=== PATIENT | male | born 1955 | race Asian ===

== ENCOUNTER 2018-06-01 10:15 | Inpatient (IN) | payer OTHER ==
[~2018-06-01] VITALS: Ht 170.2 cm; Wt 65.6 kg
[2018-06-01 10:23] VITALS: Ht 170.2 cm; Wt 65.6 kg
[2018-06-01 12:40] LABS: UA SPECIFIC GRAVITY 1.015 (1.005-1.035); microscopic required? YES; urine erythrocyte NEGATIVE (NEGATIVE)
[2018-06-01 13:10] LABS: PLATELET COUNT 181 x10^3mcL (130-400)
[2018-06-01 13:15] LABS: BASOPHIL % 0 % (0-2)
[2018-06-01 13:21] LABS: CALCIUM 8.6 mg/dL (8.5-10.1); CARBON DIOXIDE 30.2 mmol/L (21-32); CHLORIDE SERUM 103 mmol/L (98-107); CREATININE SERUM 1.1 mg/dL (0.7-1.3); GFR1 > 60 mL/min; GLUCOSE SERUM 123 mg/dL (74-106); SODIUM SERUM 139 mmol/L (136-145)
[2018-06-01 13:25] LABS: ALKALINE PHOSPHATASE 76 U/L (46-116); ALT/SGPT 32 U/L (16-63); AMYLASE 37 U/L (25-115); AST/SGOT 17 U/L (15-37); BILIRUBIN TOTAL 1.07 mg/dL (0.20-1.00); LIPASE 102 IU/L (73-393); TOTAL PROTEIN, SERUM 6.9 g/dL (6.4-8.2)
[2018-06-01 13:28] LABS: ALBUMIN 2.7 g/dL (3.4-5.0)
[2018-06-01 16:00] VITALS: BP 124/77
[2018-06-01 20:40] VITALS: BP 122/77
[2018-06-02] VITALS (7 sets, daily range): BP systolic 105–140; BP diastolic 70–81
[2018-06-02 06:27] LABS: PLATELET COUNT 169 x10^3mcL (130-400)
[2018-06-02 06:49] LABS: CALCIUM 8.1 mg/dL (8.5-10.1); CARBON DIOXIDE 24.6 mmol/L (21-32); CHLORIDE SERUM 104 mmol/L (98-107); GFR1 > 60 mL/min; GLUCOSE SERUM 196 mg/dL (74-106); POTASSIUM SERUM 4.2 mmol/L (3.5-5.1); SODIUM SERUM 137 mmol/L (136-145)
[2018-06-02 07:01] LABS: BASOPHIL % 0 % (0-2)
[2018-06-03 05:50] VITALS: BP 120/77
[2018-06-03 08:58] VITALS: BP 105/60
[2018-06-03] MEDS ORDERED: LEVAQUIN750 MG PO (09:43)
[2018-06-03 10:00] VITALS: BP 105/60
[2018-06-03 12:57] VITALS: BP 139/81
== END 2018-06-03 19:41 | disposition home or self-care (01) | DRG 340 ==
LOC: ED 10:15 → EDBD 10:15 → DU 15:08
PROVIDERS: Emergency Medicine; Internal Medicine Pulmonary Disease; Surgery
PROC: 0DTJ4ZZ Resection of Appendix, Percutaneous Endoscopic Approach (ICD-10-PCS; principal; 2018-06-01 21:30)
DX: K35.2 Acute appendicitis with generalized peritonitis (principal); K66.0 Peritoneal adhesions (postprocedural) (postinfection); Z68.23 Body mass index [BMI] 23.0-23.9, adult; Z92.21 Personal history of antineoplastic chemotherapy; Z85.038 Personal history of other malignant neoplasm of large intestine
CPT/HCPCS: 83880; 94150; J0295; J0330; J1885; J2175; J2250; J2405; J2543; J2704; J2710; J3010; J3490; J7030; J7120; Q0092; Q9967